=== PATIENT | male | born 1935 | race Caucasian/White ===

== ENCOUNTER 2017-04-06 20:06 | Inpatient (IN) | payer MEDICARE, MEDICAID ==
[~2017-04-06] VITALS: Ht 152.4 cm; Wt 69.9 kg
[~2017-04-06 20:06] MED LIST: ASPI-1159 PO; ATOR10TA69 PO
[2017-04-06 22:53] LABS: BASOPHILS % 0.2 % (0.0-2.0); EOSINOPHILS % 2.4 % (0.0-5.0); HEMATOCRIT. 28.7 % (42.0-52.0); HEMOGLOBIN. 9.3 g/dL (14.0-18.0); LYMPHOCYTES % 17.5 % (20.0-50.0); MEAN CORPUSCULAR HEMOGLOBIN 29.7 pg (28.0-32.0); MEAN CORPUSCULAR VOLUME 91.1 fL (80.0-94.0); MEAN PLATELET VOLUME 10.7 fl (7.4-10.4); MONOCYTES % 9.9 % (2.0-8.0); PLATELET 149 x1000/uL (130-400); RED BLOOD CELL COUNT 3.15 mill/uL (4.7-6.1); RED CELL DISTRIBUTION WIDTH 14.5 % (11.6-14.6)
[2017-04-06 22:56] LABS: CHLORIDE 111 mEq/L (98-107)
[2017-04-06 23:00] LABS: CARBON DIOXIDE 19 mEq/L (21-32)
[2017-04-06 23:01] LABS: INR 1.1; PROTHROMBIN TIME 11.5 sec (9.4-11.6)
[2017-04-06 23:07] LABS: TROPONIN I < 0.02 ng/mL (0.00-0.04)
[2017-04-07 00:38] LABS: CLARITY URINE CLEAR (CLEAR); COLOR URINE YELLOW (YELLOW); GLUCOSE URINE TRACE (NEGATIVE); KETONES URINE NEGATIVE (NEGATIVE); LEUKOCYTE ESTERASE URINE NEGATIVE (NEGATIVE); NITRITE URINE NEGATIVE (NEGATIVE); OCCULT BLOOD URINE 1+ (NEGATIVE); PROTEIN URINE 2+ (NEGATIVE); SPECIFIC GRAVITY URINE 1.015 (1.005-1.030); UROBILINOGEN URINE 0.2 E.U./dL (0.2-1.0)
[2017-04-07 04:00] VITALS: BP 144/57
[2017-04-07] MEDS ORDERED: AMLO10TA80 PO (04:31)
[2017-04-07] MEDS ORDERED: METO50TA5 PO (04:31)
[2017-04-07] MEDS ORDERED: PIOG15TA6 PO (04:31)
[2017-04-07] MEDS ORDERED: CLOP75TA33 PO (04:31)
[2017-04-07] MEDS ORDERED: LISI10TA5 PO (04:31)
[2017-04-07] MEDS ORDERED: FURO20TA4 PO (04:31)
[2017-04-07] MEDS ORDERED: DEXTROSE 50% WATER 50ML SYRINGE IV PRN (05:00)
[2017-04-07] MEDS ORDERED: CLONIDINE 0.1MG TABLET PO PRN (05:00)
[2017-04-07 05:30] VITALS: BP 152/55
[2017-04-07] MEDS: INSULIN LISPRO 100 UNITS/ML SUBCUT SCH ×4 (06:28→22:00)
[2017-04-07 07:49] VITALS: BP 136/41
[2017-04-07] MEDS: BLOOD SUGAR DIAGNOSTIC STRIP TEST SCH ×4 (08:09→21:59)
[2017-04-07] MEDS: CLOPIDOGREL 75MG TABLET PO SCH (08:57)
[2017-04-07] MEDS: ASPIRIN 81MG EC TABLET PO SCH (08:57)
[2017-04-07] MEDS: METOPROLOL TARTRATE 50MG TABLET PO SCH ×2 (08:57→21:59)
[2017-04-07] MEDS: AMLODIPINE 10MG TABLET PO SCH (08:58)
[2017-04-07] MEDS ORDERED: LISINOPRIL 10MG TABLET PO SCH (09:00)
[2017-04-07] MEDS ORDERED: ENOXAPARIN 30MG/0.3ML SYR SUBCUT SCH (09:00)
[2017-04-07 09:45] LABS: HEMATOCRIT 30.4 % (42.0-52.0); HEMOGLOBIN 9.9 g/dL (14.0-18.0); MEAN CORPUSCULAR HEMOGLOBIN 29.4 pg (28.0-32.0); MEAN CORPUSCULAR VOLUME 90.2 fL (80.0-94.0); PLATELET 154 x1000/uL (130-400); RED BLOOD CELL COUNT 3.37 mill/uL (4.7-6.1); RED CELL DISTRIBUTION WIDTH 14.5 % (11.6-14.6)
[2017-04-07] MEDS ORDERED: OMEPRAZOLE 20MG CAPSULE EXTENDED RELEASE PO NR (09:45)
[2017-04-07] MEDS: FUROSEMIDE 40MG/4ML VIAL IVP SCH (10:45)
[2017-04-07] MEDS: PIOGLITAZONE 15MG TABLET PO SCH (10:45)
[2017-04-07 11:47] VITALS: BP 137/52
[2017-04-07 12:28] LABS: CARBON DIOXIDE 20 mEq/L (21-32); CHLORIDE 113 mEq/L (98-107); CREATINE KINASE 123 IU/L (39-308); PHOSPHORUS 3.8 mg/dL (2.5-4.9)
[2017-04-07] MEDS: NITROGLYCERIN OINT 1GM/INCH UDPKT TD SCH ×2 (12:28→21:58)
[2017-04-07 13:10] LABS: CLARITY URINE CLOUDY (CLEAR); COLOR URINE YELLOW (YELLOW); GLUCOSE URINE TRACE (NEGATIVE); KETONES URINE NEGATIVE (NEGATIVE); LEUKOCYTE ESTERASE URINE NEGATIVE (NEGATIVE); NITRITE URINE NEGATIVE (NEGATIVE); OCCULT BLOOD URINE 1+ (NEGATIVE); PROTEIN URINE 2+ (NEGATIVE); SPECIFIC GRAVITY URINE 1.012 (1.005-1.030); UROBILINOGEN URINE 0.2 E.U./dL (0.2-1.0)
[2017-04-07 13:51] LABS: HEPATITIS B SURFACE ANTIGEN NEGATIVE
[2017-04-07 14:17] LABS: HEPATITIS B CORE AB IGM NEGATIVE
[2017-04-07 14:18] LABS: HEPATITIS A AB IGM NEGATIVE (NEGATIVE)
[2017-04-07 15:53] VITALS: BP 148/56
[2017-04-07] MEDS ORDERED: TAMSULOSIN HCL 0.4MG SR CAPSULE PO NR (16:00)
[2017-04-07] MEDS: SEVELAMER CARBONATE 800 MG TABLET PO SCH (17:50)
[2017-04-07 20:00] VITALS: BP 133/50
[2017-04-07] MEDS: ATORVASTATIN CALCIUM 10MG TABLET PO SCH (21:59)
[2017-04-08] VITALS: BP 115/47
[2017-04-08 04:00] VITALS: BP 111/47
[2017-04-08] MEDS: OMEPRAZOLE 20MG CAPSULE EXTENDED RELEASE PO SCH (06:21)
[2017-04-08] MEDS: NITROGLYCERIN OINT 1GM/INCH UDPKT TD SCH (06:23)
[2017-04-08] MEDS: BLOOD SUGAR DIAGNOSTIC STRIP TEST SCH ×4 (06:23→21:00)
[2017-04-08 07:16] LABS: BASOPHILS % 0.4 % (0.0-2.0); EOSINOPHILS % 4.6 % (0.0-5.0); HEMOGLOBIN. 8.4 g/dL (14.0-18.0); LYMPHOCYTES % 17.3 % (20.0-50.0); MEAN CORPUSCULAR HEMOGLOBIN 29.9 pg (28.0-32.0); MEAN CORPUSCULAR VOLUME 89.2 fL (80.0-94.0); MEAN PLATELET VOLUME 11.4 fl (7.4-10.4); NEUTROPHILS % 67.7 % (40.0-76.0); PLATELET 138 x1000/uL (130-400); RED CELL DISTRIBUTION WIDTH 14.2 % (11.6-14.6)
[2017-04-08] MEDS: INSULIN LISPRO 100 UNITS/ML SUBCUT SCH ×4 (07:50→22:29)
[2017-04-08 07:58] VITALS: BP 123/46
[2017-04-08] MEDS: CLOPIDOGREL 75MG TABLET PO SCH (08:39)
[2017-04-08] MEDS: FOLIC ACID/VITAMIN B COMP W-C TABLET PO SCH (08:39)
[2017-04-08] MEDS: ASPIRIN 81MG EC TABLET PO SCH (08:40)
[2017-04-08] MEDS: TAMSULOSIN HCL 0.4MG SR CAPSULE PO SCH (08:40)
[2017-04-08] MEDS: SEVELAMER CARBONATE 800 MG TABLET PO SCH ×3 (08:40→18:00)
[2017-04-08] MEDS: FUROSEMIDE 40MG/4ML VIAL IVP SCH (08:41)
[2017-04-08] MEDS: METOPROLOL TARTRATE 50MG TABLET PO SCH ×2 (08:41→22:28)
[2017-04-08] MEDS: AMLODIPINE 10MG TABLET PO SCH (08:41)
[2017-04-08] MEDS: PIOGLITAZONE 15MG TABLET PO SCH (08:48)
[2017-04-08] MEDS ORDERED: SODIUM POLYSTYRENE SULFONATE 15 G/60 ML BOT PO NR (09:00)
[2017-04-08 09:05] LABS: TOTAL IRON BINDING CAPACITY 163 ug/dL (250-450)
[2017-04-08 12:00] VITALS: BP 138/50
[2017-04-08 16:00] VITALS: BP 138/48
[2017-04-08 20:00] VITALS: BP 146/53
[2017-04-08] MEDS: ATORVASTATIN CALCIUM 10MG TABLET PO SCH (22:27)
[2017-04-08] MEDS: EPOETIN ALFA 10000UNITS/ML VIAL SUBCUT SCH (22:46)
[2017-04-09] VITALS: BP 131/49
[2017-04-09 04:00] VITALS: BP 124/42
[2017-04-09] MEDS: BLOOD SUGAR DIAGNOSTIC STRIP TEST SCH ×4 (06:37→21:05)
[2017-04-09] MEDS: OMEPRAZOLE 20MG CAPSULE EXTENDED RELEASE PO SCH (06:37)
[2017-04-09 07:22] LABS: BASOPHILS % 0.2 % (0.0-2.0); EOSINOPHILS % 4.4 % (0.0-5.0); HEMATOCRIT. 26.1 % (42.0-52.0); HEMOGLOBIN. 8.8 g/dL (14.0-18.0); LYMPHOCYTES % 14.7 % (20.0-50.0); MEAN CORPUSCULAR HEMOGLOBIN 30.1 pg (28.0-32.0); MEAN PLATELET VOLUME 11.5 fl (7.4-10.4); MONOCYTES % 9.1 % (2.0-8.0); NEUTROPHILS % 71.6 % (40.0-76.0); PLATELET 137 x1000/uL (130-400); RED BLOOD CELL COUNT 2.93 mill/uL (4.7-6.1); RED CELL DISTRIBUTION WIDTH 13.8 % (11.6-14.6)
[2017-04-09] MEDS: INSULIN LISPRO 100 UNITS/ML SUBCUT SCH ×4 (07:50→21:00)
[2017-04-09 08:00] VITALS: BP 158/58
[2017-04-09] MEDS: FOLIC ACID/VITAMIN B COMP W-C TABLET PO SCH (11:49)
[2017-04-09] MEDS: TAMSULOSIN HCL 0.4MG SR CAPSULE PO SCH (11:49)
[2017-04-09] MEDS: METOPROLOL TARTRATE 50MG TABLET PO SCH ×2 (11:50→21:05)
[2017-04-09] MEDS: PIOGLITAZONE 15MG TABLET PO SCH (11:50)
[2017-04-09] MEDS: AMLODIPINE 10MG TABLET PO SCH (11:50)
[2017-04-09] MEDS: CLOPIDOGREL 75MG TABLET PO SCH (11:50)
[2017-04-09] MEDS: SEVELAMER CARBONATE 800 MG TABLET PO SCH ×3 (11:51→19:02)
[2017-04-09] MEDS: FUROSEMIDE 40MG/4ML VIAL IVP SCH (11:54)
[2017-04-09 12:00] VITALS: BP 148/55
[2017-04-09] MEDS: ASPIRIN 81MG EC TABLET PO SCH (14:50)
[2017-04-09 16:00] VITALS: BP 149/49
[2017-04-09 19:12] LABS: ANTI-NUCLEAR ANTIBODIES DIRECT Negative (Negative)
[2017-04-09 20:00] VITALS: BP 131/59
[2017-04-09] MEDS: ATORVASTATIN CALCIUM 10MG TABLET PO SCH (21:05)
[2017-04-10] VITALS (8 sets, daily range): BP systolic 124–152; BP diastolic 47–75
[2017-04-10] MEDS: OMEPRAZOLE 20MG CAPSULE EXTENDED RELEASE PO SCH (05:49)
[2017-04-10 06:20] LABS: COMPLEMENT C3 69 mg/dL (82-167)
[2017-04-10] MEDS: BLOOD SUGAR DIAGNOSTIC STRIP TEST SCH ×4 (06:23→21:51)
[2017-04-10 06:35] LABS: BASOPHILS % 0.4 % (0.0-2.0); EOSINOPHILS % 3.4 % (0.0-5.0); HEMATOCRIT. 25.1 % (42.0-52.0); HEMOGLOBIN. 8.4 g/dL (14.0-18.0); LYMPHOCYTES % 19.8 % (20.0-50.0); MEAN CORPUSCULAR HEMOGLOBIN 29.9 pg (28.0-32.0); MEAN CORPUSCULAR VOLUME 89.6 fL (80.0-94.0); MEAN PLATELET VOLUME 11.4 fl (7.4-10.4); NEUTROPHILS % 66.4 % (40.0-76.0); PLATELET 138 x1000/uL (130-400); RED CELL DISTRIBUTION WIDTH 13.9 % (11.6-14.6)
[2017-04-10] MEDS: INSULIN LISPRO 100 UNITS/ML SUBCUT SCH ×4 (07:50→22:09)
[2017-04-10 07:57] LABS: PHOSPHORUS 3.2 mg/dL (2.5-4.9)
[2017-04-10] MEDS: SEVELAMER CARBONATE 800 MG TABLET PO SCH ×3 (09:14→18:05)
[2017-04-10] MEDS: FOLIC ACID/VITAMIN B COMP W-C TABLET PO SCH (09:14)
[2017-04-10] MEDS: CLOPIDOGREL 75MG TABLET PO SCH (09:14)
[2017-04-10] MEDS: FUROSEMIDE 40MG/4ML VIAL IVP SCH (09:14)
[2017-04-10] MEDS: ASPIRIN 81MG EC TABLET PO SCH (09:15)
[2017-04-10] MEDS: METOPROLOL TARTRATE 50MG TABLET PO SCH ×2 (09:15→21:00)
[2017-04-10] MEDS: TAMSULOSIN HCL 0.4MG SR CAPSULE PO SCH (09:15)
[2017-04-10] MEDS: AMLODIPINE 10MG TABLET PO SCH (09:16)
[2017-04-10] MEDS: PIOGLITAZONE 15MG TABLET PO SCH (09:24)
[2017-04-10] MEDS: ATORVASTATIN CALCIUM 10MG TABLET PO SCH (22:11)
[2017-04-10] MEDS: EPOETIN ALFA 10000UNITS/ML VIAL SUBCUT SCH (22:11)
[2017-04-11] VITALS (12 sets, daily range): BP systolic 124–169; BP diastolic 41–62
[2017-04-11] MEDS: OMEPRAZOLE 20MG CAPSULE EXTENDED RELEASE PO SCH (06:17)
[2017-04-11] MEDS: BLOOD SUGAR DIAGNOSTIC STRIP TEST SCH ×4 (06:17→21:00)
[2017-04-11] MEDS: SEVELAMER CARBONATE 800 MG TABLET PO SCH ×3 (08:46→18:03)
[2017-04-11] MEDS: AMLODIPINE 10MG TABLET PO SCH (08:46)
[2017-04-11] MEDS: METOPROLOL TARTRATE 50MG TABLET PO SCH ×2 (08:46→22:27)
[2017-04-11] MEDS: FOLIC ACID/VITAMIN B COMP W-C TABLET PO SCH (08:47)
[2017-04-11] MEDS: TAMSULOSIN HCL 0.4MG SR CAPSULE PO SCH (08:47)
[2017-04-11] MEDS: FUROSEMIDE 40MG/4ML VIAL IVP SCH (08:47)
[2017-04-11] MEDS: INSULIN LISPRO 100 UNITS/ML SUBCUT SCH ×4 (08:52→22:37)
[2017-04-11] MEDS: PIOGLITAZONE 15MG TABLET PO SCH (09:40)
[2017-04-11 13:29] LABS: BASOPHILS % 0.2 % (0.0-2.0); EOSINOPHILS % 2.1 % (0.0-5.0); HEMATOCRIT. 37.6 % (42.0-52.0); HEMOGLOBIN. 12.8 g/dL (14.0-18.0); LYMPHOCYTES % 15.3 % (20.0-50.0); MEAN CORPUSCULAR HEMOGLOBIN 29.8 pg (28.0-32.0); MEAN CORPUSCULAR VOLUME 87.7 fL (80.0-94.0); MEAN PLATELET VOLUME 10.9 fl (7.4-10.4); MONOCYTES % 9.4 % (2.0-8.0); PLATELET 139 x1000/uL (130-400); RED BLOOD CELL COUNT 4.28 mill/uL (4.7-6.1); RED CELL DISTRIBUTION WIDTH 14.4 % (11.6-14.6)
[2017-04-11] MEDS: ATORVASTATIN CALCIUM 10MG TABLET PO SCH (21:00)
[2017-04-12] VITALS: BP 133/73
[2017-04-12 04:00] VITALS: BP 150/53
[2017-04-12 06:56] LABS: BASOPHILS % 0.2 % (0.0-2.0); EOSINOPHILS % 1.7 % (0.0-5.0); HEMOGLOBIN. 11.8 g/dL (14.0-18.0); LYMPHOCYTES % 11.2 % (20.0-50.0); MEAN CORPUSCULAR HEMOGLOBIN 29.3 pg (28.0-32.0); MEAN CORPUSCULAR VOLUME 87.2 fL (80.0-94.0); MEAN PLATELET VOLUME 10.9 fl (7.4-10.4); MONOCYTES % 9.6 % (2.0-8.0); NEUTROPHILS % 77.3 % (40.0-76.0); PLATELET 142 x1000/uL (130-400); RED BLOOD CELL COUNT 4.02 mill/uL (4.7-6.1); RED CELL DISTRIBUTION WIDTH 14.8 % (11.6-14.6)
[2017-04-12] MEDS: BLOOD SUGAR DIAGNOSTIC STRIP TEST SCH ×2 (07:20→12:40)
[2017-04-12 08:00] VITALS: BP 153/72
[2017-04-12] MEDS: PIOGLITAZONE 15MG TABLET PO SCH (09:02)
[2017-04-12] MEDS: OMEPRAZOLE 20MG CAPSULE EXTENDED RELEASE PO SCH (09:02)
[2017-04-12] MEDS: FOLIC ACID/VITAMIN B COMP W-C TABLET PO SCH (09:02)
[2017-04-12] MEDS: TAMSULOSIN HCL 0.4MG SR CAPSULE PO SCH (09:02)
[2017-04-12] MEDS: METOPROLOL TARTRATE 50MG TABLET PO SCH (09:03)
[2017-04-12] MEDS: SEVELAMER CARBONATE 800 MG TABLET PO SCH ×2 (09:03→12:41)
[2017-04-12] MEDS: AMLODIPINE 10MG TABLET PO SCH (09:04)
[2017-04-12] MEDS: INSULIN LISPRO 100 UNITS/ML SUBCUT SCH ×2 (09:07→13:04)
[2017-04-12 11:34] VITALS: BP 130/66
[2017-04-12 12:00] VITALS: BP 130/71
[2017-04-12] MEDS ORDERED: ATORVASTATIN CALCIUM 40MG TABLET PO SCH (21:00)
== END 2017-04-12 16:00 | disposition home health service (06) | DRG 291 ==
LOC: ER 22:00 → 6EST 04-07 01:05 → ENRESERV 04-07 02:31 → 6WST 04-07 05:04
PROVIDERS: ADMIT Internal Medicine Geriatric Medicine; ATTEND Internal Medicine Geriatric Medicine
PROC: 30233N1 Transfusion of Nonautologous Red Blood Cells into Peripheral Vein, Percutaneous Approach (ICD-10-PCS; principal; 2017-04-10)
DX: I13.0 Hypertensive heart and chronic kidney disease with heart failure and stage 1 through stage 4 chronic kidney disease, or unspecified chronic kidney disease (principal); I50.23 Acute on chronic systolic (congestive) heart failure; N17.0 Acute kidney failure with tubular necrosis; R18.8 Other ascites; E44.0 Moderate protein-calorie malnutrition; E11.51 Type 2 diabetes mellitus with diabetic peripheral angiopathy without gangrene; E87.5 Hyperkalemia; E11.649 Type 2 diabetes mellitus with hypoglycemia without coma; N18.9 Chronic kidney disease, unspecified; I25.10 Atherosclerotic heart disease of native coronary artery without angina pectoris; E78.5 Hyperlipidemia, unspecified; D50.9 Iron deficiency anemia, unspecified; D63.1 Anemia in chronic kidney disease; E78.00 Pure hypercholesterolemia, unspecified; N40.1 Benign prostatic hyperplasia with lower urinary tract symptoms; R33.8 Other retention of urine; Z79.4 Long term (current) use of insulin; Z79.899 Other long term (current) drug therapy; Z87.11 Personal history of peptic ulcer disease; I25.2 Old myocardial infarction; Z87.891 Personal history of nicotine dependence; Z95.1 Presence of aortocoronary bypass graft; Z99.2 Dependence on renal dialysis; Z68.30 Body mass index [BMI] 30.0-30.9, adult
CPT/HCPCS: 36415; 71010; 76770; 80048; 80053; 81001; 82270; 82550; 82728; 82962; 83036; 83540; 83550; 83735; 83880; 84100; 84153; 84443; 84484; 84550; 85025; 85027; 85610; 86038; 86160; 86705; 86709; 86803; 86850; 86900; 86920; 87086; 87340; 93005; 93306; 93970; 99285; J0885; J1650; J1815; J1940; J7050; P9016; A4315